=== PATIENT | male | born 1945 | race Caucasian/White ===

== ENCOUNTER 2018-11-28 06:37 | Inpatient (IN) ==
--- NOTE | 2018-11-26 11:25 | Anesthesiology Consultation ---
Date of Service November 26, 2018 Assessment & Plan (1) Encounter for pre-operative examination: Chart Review Chart Review: Acceptable Risk for Surgery and Patient NOT seen in Pre Admission Testing History Surgery Operation Date: 11/28/18 09:00 Proposed Procedures p C3-C4, C5-C6 Anterior Cervical Discectomy and Fusion with Iliac Crest Bone Graft - Marv Zuniga, Height/Weight Height: 5 ft 2 in Weight: 105.233 kg Allergies Allergy/AdvReac Type Severity Reaction Status Date / Time No Known Allergies Allergy Verified 11/26/18 10:43 Medications Home Medications Medication Instructions Recorded Confirmed Last Taken budesonide-formoterol [Symbicort] 2 puff INHALATION BID 11/26/18 11/26/18 Unknown ergocalciferol (vitamin D2) 50,000 unit PO WK 11/26/18 11/26/18 Unknown [Vitamin D2] furosemide 80 mg PO QAM 11/26/18 11/26/18 Unknown ipratropium-albuterol 3 ml INHALATION QID 11/26/18 11/26/18 Unknown metoprolol tartrate 25 mg PO QAM 11/26/18 11/26/18 Unknown potassium chloride 20 meq PO QAM 11/26/18 11/26/18 Unknown simvastatin 20 mg PO HS 11/26/18 11/26/18 Unknown Past Medical History Medical History Anemia Atrial fibrillation Patient reports coumadin currently on hold due to anemia, PCP monitoring. Chronic obstructive pulmonary disease Degenerative disc disease CERVICAL H/O prostate cancer s/p brachytherapy Hearing deficit Hyperlipidemia Hypertension Morbid obesity On home oxygen therapy WEARS 2L CONT. Osteoarthritis Sleep apnea CPAP Past Family History Family History Other No significant family history Past Surgical History Surgical History History of brachytherapy History of carpal tunnel release RT/LEFT History of cataract surgery RT/LEFT History of colonoscopy History of tonsillectomy History of tooth extraction History of total hip arthroplasty RT Hx of prostate biopsy STOP BANG Total 8 Social History Smoking Status: Former smoker tobacco type: cigarettes Do You Dip or Chew Tobacco: No Smoking End Date: QUIT 32 YEARS AGO Hx Alcohol Use: No Hx Substance Use: No substance use type: does not use Testing Laboratory Results 11/25/18 WBC: 9.92 H/H: 13.3/40.6 PLATELETS: 254 SODIUM: 138 POTASSIUM: 3.8 CHLORIDE: 102 CO2: 30 BUN: 21 CREATININE: 0.98 GLUCOSE: 133 PT: 12.5 PTT: 29.9 INR: 1.2 UA: TYPE AND SCREEN: Electrocardiogram Date: 11/25/18 Findings: + NSR @ (60) Low voltage QRS. Chest X-Ray Date: 11/25/18 IMPRESSION: 1. Hyperinflation may suggest an underlying obstructive lung disease. 2. Bandlike bibasilar opacities paradoxically suggest atelectasis or scarring. 3. Borderline cardiomegaly. No evidence of pulmonary edema or congestive change. Echocardiogram Date: 03/26/18 EF: 60-64% No LV segmental wall motion normalities. Right ventricular cavity size is normal. Right ventricular systolic function is mildly reduced. No significant valvular disease present.
--- NOTE | 2018-11-26 12:26 | History and Physical Report ---
DATE OF ADMISSION: 11/28/2018 HISTORY OF PRESENT ILLNESS: The patient is pleasant, he is 73. He is profoundly compromised with spinal cord compression, partial paralysis, walking intolerance, weakness of upper and lower extremity. He has fairly significant cord compression C3-C4 and 5-6 cervical spine. He is set up for urgent surgery. PAST MEDICAL HISTORY: Positive for prostate CA, hypertension, high cholesterol. PAST SURGICAL HISTORY: Cataracts, carpal tunnel, hip replacement. ALLERGIES: Negative. SOCIAL HISTORY: He is . No alcohol, tobacco. FAMILY HISTORY: Breast CA. REVIEW OF SYSTEMS: Denies any fevers, sweats, chills, weight loss or gain. No ear, nose and throat complaints. Denies any chest pain, palpitations. Occasional shortness of breath. No nausea, vomiting, urgency, frequency. He has mostly weakness, muscle pain, easy bruisability. OBJECTIVE: GENERAL: He is alert, oriented, pleasant gentleman. He is immensely compromised. He is in a wheelchair. He is 5 feet 2 inches, 235 pounds. VITAL SIGNS: Blood pressure 150/80, pulse 80, respiration 16. HEENT: Pupils react to light and accommodation. Ear, nose and throat clear. CARDIAC: Normal S1, S2. No S3. LUNGS: Clear to auscultation. No rales, rhonchi or wheezing. ABDOMEN: Obese, but soft, nontender. NEUROLOGIC: He has weakness of upper extremities, hyperreflexia, clonus. He has Babinski. X-rays demonstrate spinal cord compression C3-C4 and C5-C6 cervical spine. IMPRESSION: Spinal cord compression. PLAN: Includes an urgent surgery for a 2-level ACDF of the cervical spine C3-C4 and C5-C6 with iliac crest bone graft.
[~2018-11-28 06:37] MED LIST: CEFAZOLIN 2000MG 2,000 MG/15 ML SYR IV SCH; LR 15ML/HR IV SCH; SODIUM CHLORIDE 0.9% 1,000 ML IV SCH
[2018-11-28] MEDS ORDERED: DEXAMETHASONE SOD INJ 4 MG/ML VIAL ONE (08:02)
[2018-11-28] MEDS ORDERED: ROCURONIUM BROMIDE 10 MG/ML 5 ML VIAL ONE ×4 (08:02→11:08)
[2018-11-28] MEDS ORDERED: fentaNYL citrate 100 MCG/2 ML VIAL ONE (08:02)
[2018-11-28] MEDS ORDERED: LIDOCAINE HCL 2% 2 ML VIAL/AMP(20MG/ML) INFIL ONE (08:02)
[2018-11-28] MEDS ORDERED: ONDANSETRON INJ 2 MG/ML 2 ML VIAL ONE (08:02)
[2018-11-28] MEDS ORDERED: PROPOFOL IV EMULSION 10 MG/ML 20 ML VIAL IV ONE (08:02)
--- NOTE | 2018-11-28 09:17 | History & Physical Bridge Note ---
Date of Service November 28, 2018 History & Physical Bridge Note I have examined the patient, reviewed the History & Physical and in the interval since the performance of the History & Physical I have noted the following changes of clinical significance: no changes noted
[2018-11-28] MEDS ORDERED: GELATIN SPONGE SZ 100 ONE ×2 (09:25→09:27)
[2018-11-28] MEDS ORDERED: BUPIVACAINE/EPINEPHRINE 0.5% MPF 1:200,000 30 ML VIAL ONE ×2 (09:25→09:27)
[2018-11-28] MEDS ORDERED: BACITRACIN INJ 50,000 UNIT VIAL ONE (09:26)
[2018-11-28] MEDS ORDERED: THROMBIN FOR SOLN 20000 UNIT KIT ONE ×2 (09:26→09:27)
[2018-11-28] MEDS ORDERED: KETAMINE HCL INJ 50 MG/ML 10 ML VIAL ONE (09:59)
[2018-11-28] MEDS ORDERED: SODIUM CHLORIDE 0.9% INJ 10 ML VIAL ONE (10:00)
[2018-11-28] MEDS ORDERED: GLYCOPYRROLATE 0.2 MG/ML VIAL ONE (11:11)
[2018-11-28] MEDS ORDERED: NEOSTIGMINE METHYLSULFATE 5 MG/5 ML SYR ONE (11:11)
--- NOTE | 2018-11-28 11:27 | Post Operative Brief Note ---
Immediate Post Op Note v1 Date of Surgery November 28, 2018 Pre & Post Diagnosis Operation Date: 11/28/18 09:00 Pre-Op Diagnosis: CERVICAL STENOSIS, CORD COMPRESSION, DISC HERNIATI Post-Op Diagnosis: CERVICAL STENOSIS, CORD COMPRESSION, DISC HERNIATI Procedure Operation Date: 11/28/18 09:00 Actual Procedures p C3-C4 Anterior Cervical Discectomy and Fusion(Not Applicable) - Marv Zuniga DO Surgeon Marv Zuniga DO Sales Clerk Supervisor staff Estimated Blood Loss 30 Findings Consistent with Post-Op Diagnosis Drains Jake Drain Anesthesia Type General Disposition Accompanied Patient To Recovery: Yes Overlapping Procedure I was immediately available: during the entire case.
--- NOTE | 2018-11-28 11:39 | Fluoroscopy Report ---
FL spine 1V any level CLINICAL HISTORY: ACDF C3-C6 COMPARISON STUDY: None FLUOROSCOPY TIME: 10 seconds. NUMBER OF FLUOROSCOPIC IMAGES: 1 FINDINGS: A single intraoperative fluoroscopic spot image demonstrates postsurgical changes of anteri or cervical discectomy and fusion at the C3-4 level. There is a metallic probe projecting over the po sterior soft tissues at the C3-4 level. IMPRESSION: Intraoperative fluoroscopic spot image demonstrating postsurgical changes of anterior ce rvical discectomy and fusion at the C3-4 level. Electronically signed by: Nikko Shane M.D. 11/28/2018 11:38 AM
--- NOTE | 2018-11-28 12:37 | Operative Report ---
DATE OF OPERATION: 11/28/2018 PREOPERATIVE DIAGNOSIS: Spinal cord compression C3-C4 and C5-C6 cervical spine. POSTOPERATIVE DIAGNOSIS: Spinal cord compression C3-C4 and C5-C6 cervical spine. PROCEDURES: Included anterior cervical discectomy and decompression of spinal cord at C3-C4, anterior arthrodesis with Gl[employer] Coalition device at C3-C4 cervical spine. Bone graft used was combination of autograft from the cervical spine, local bone, and demineralized bone matrix. IMPLANTS USED: By the spigit. BLOOD LOSS: 30 mL. DESCRIPTION OF PROCEDURE: The patient was taken to the operating room. A general intubated anesthetic provided to the patient, a formal timeout taken. The patient was carefully marked in the preop holding area. I went over the procedure with the family and the patient. After successful general intubated anesthetic, we made a skin incision and fascial incision transverse roughly over the C3 level of the cervical spine. I was able to get to the C3-C4 level fairly readily. He was very obese, it was very deep, it was a very difficult procedure. I was able to clean out the disc interval. I got back to the spinal cord, took off disc material of the spinal cord. I went out to the uncovertebral joints, did foraminotomies. The nerve and cord were decompressed. I went down to the C5-C6 interval. Unfortunately, there were calcific deposits completely encased over the anterior aspect of the spinal cord. I could not safely get into the area. I thought I truly would have been endangering the patient. In addition, we were at the C5-C6 level on his anatomy, we were right above the clavicle and we could really barely hold the retractors to get any kind of visualization. I settled on the C3-C4 interspace thinking that was the majority of spinal cord compression. I placed the Coalition implant into place. I fastened, locked, irrigated, and closed in layers over a Jake drain. Sterile dressings applied. The patient was placed in cervical collar. I attest to the content of the Intraoperative Record and any orders documented therein. Any exception s are noted below.
--- NOTE | 2018-11-28 12:49 | Anesthesiology Progress Note ---
Date of Service November 28, 2018 Anesthesia Post Procedure Vital Signs Vital Signs: Temp Pulse Pulse Resp BP Pulse Ox 11/28/18 12:40 67 19 156/85 H 92 11/28/18 12:30 66 18 155/81 H 94 11/28/18 12:20 64 20 153/81 H 93 11/28/18 12:10 69 16 153/86 H 93 11/28/18 12:00 66 16 153/81 H 95 11/28/18 11:50 68 16 158/80 H 95 11/28/18 11:43 96.8 F L 76 16 167/83 H 96 11/28/18 07:52 97.7 F 60 18 118/73 93 Transfer of Care Handoff Completed per policy Notes Mental Status: alert / awake / arousable and participated in evaluation Patient Amnestic to Procedure: Yes Nausea / Vomiting: adequately controlled Pain: adequately controlled Airway Patency, RR, SpO2: stable & adequate BP & HR: stable & adequate Hydration State: stable & adequate Anesthetic Complications: no major complications apparent and Pt Satisfied with anesthetic care
[2018-11-28] MEDS ORDERED: MoRPHine SULFATE 2 MG/ML CARP IV PRN (13:36)
[2018-11-28] MEDS ORDERED: DEXAMETHASONE SOD PHOSPHATE 8 MG in SYRINGE 0 ML IV PRN (13:36)
[2018-11-28] MEDS ORDERED: NALOXONE HCL 0.4 MG/1 ML VIAL/CARP IV PRN (13:36)
[2018-11-28] MEDS ORDERED: DiphenhydrAMINE HCL 50 MG/ML VIAL IV PRN (13:36)
[2018-11-28] MEDS ORDERED: ACETAMINOPHEN 1,000 MG/100 ML VIAL IV PRN (13:36)
[2018-11-28] MEDS ORDERED: HYDROCODONE/ACETAMOPHEN 5/325MG TAB PO PRN (13:36)
[2018-11-28] MEDS ORDERED: MAGNESIUM HYDROXIDE SUSP 30 ML UDC PO PRN (13:36)
[2018-11-28] MEDS ORDERED: LORazepam 0.5 MG TAB PO PRN (13:36)
[2018-11-28] MEDS ORDERED: RACEPINEPHRINE 2.25% NEBU SOLN 0.5 ML VIAL INH PRN (13:36)
[2018-11-28] MEDS ORDERED: LACTATED RINGER'S 1,000 ML IV SCH (13:36)
[2018-11-28] MEDS ORDERED: ONDANSETRON INJ 2 MG/ML 2 ML VIAL IV PRN (13:36)
[2018-11-28] MEDS ORDERED: ALBUTEROL 0.083% NEBU SOLN 3 ML VIAL INH SCH (14:00)
[2018-11-28] MEDS: ALBUT/IPRATROP 3MG/0.5MG NEB 3 ML VIAL INH SCH ×2 (14:57→19:09)
[2018-11-28] MEDS: DEXAMETHASONE SOD PHOSPHATE 6 MG in SYRINGE 0 ML IV SCH (15:34)
--- NOTE | 2018-11-28 16:33 | Hospitalist Consultation ---
Date of Consultation November 28, 2018 Assessment & Plan (1) Encounter for postoperative care: 73 y/o M Hx HTN, HLD, COPD - 2L 02, CHF, PAF, morbid obesity, AUDELIA, cervical disc disease. Presented with signs of cord compression including upper and lower extremity numbness and weakness. He was promptly transported to the ER for emergent intervention. The medical service is asked to consult in the post-operative period due to his plethora of active medical issues. The pt is recovering well in the post-op period. Denies CP, SOB, nausea, vomiting, fevers or excessive pain at the surgical site. 1) Post-op - pain is controlled. PT/OT and anticoagulation to discretion of the orthopedic service. 2) CHF - euvolemic - can continue Metoprolol - hold Lasix pending AM labs and volume assessment. 3) COPD - 02 protocol - inhalers as prescribed 4) HTN, HLD - cont Metoprolol, Zocor perioperatively 5) AUDELIA - has brought his own CPAP 6) AF - sinus on arrival - cont b joyce - resumption of Coumadin to discretion of his primary MD. Total time for this consult including review of labs, meds, imaging, records - ortho notes - discussion with pt - 38 min History of Present Illness Requesting Physician: Nadia Attending Physician: Marv Zuniga, DO History of Present Illness 73 y/o M Hx HTN, HLD, COPD - 2L 02, CHF, PAF, morbid obesity, AUDELIA, cervical disc disease. Presented with signs of cord compression including upper and lower extremity numbness and weakness. He was promptly transported to the ER for e mergent intervention. The medical service is asked to consult in the post- operative period due to his plethora of active medical issues. The pt is recovering well in the post-op period. Denies CP, SOB, nausea, vomiting, fevers or excessive pain at the surgical site. PMH: 1) HTN 2) HLD 3) COPD - 2L home 02 4) Morbidly obese 5) Paroxysmal atrial fibrillation - states he was taking Coumadin but had been to the hospital one month ago for an "overdose" and was then told by the ER attending not to start taking it again 6) Cervical disc disease - C3-4,5-6 cord compression 7) Grade I diastolic CHF - echo 2017 8) AUDELIA - CPAP Surgical: 1) R total hip 2) BL carpal tunnel 3) BL cataracts Social: Does not currently smoke or drink Family: Breast CA Allergies Allergy/AdvReac Type Severity Reaction Status Date / Time No Known Allergies Allergy Verified 11/28/18 07:31 Home Medications Home Medications Medication Instructions Recorded Confirmed Type budesonide-formoterol [Symbicort] 2 puff INHALATION BID 11/26/18 11/28/18 History ergocalciferol (vitamin D2) 50,000 unit PO WK 11/26/18 11/28/18 History [Vitamin D2] furosemide 80 mg PO QAM 11/26/18 11/28/18 History ipratropium-albuterol 3 ml INHALATION QID 11/26/18 11/28/18 History metoprolol tartrate 25 mg PO QAM 11/26/18 11/28/18 History potassium chloride 20 meq PO QAM 11/26/18 11/28/18 History simvastatin 20 mg PO HS 11/26/18 11/28/18 History prednisone 12 mg PO DAILY 11/28/18 11/28/18 History Patient History Family History Other No significant family history Social History Preferred Language: Bhutanese Communication Ability: Effective [employer] Principal Required: No Beliefs That Will Affect Care: None Current Living Situation: Spouse Other Information That Helps Us Care for You: No Feels Safe at Home: Yes Safety Concerns: Feels Safe At This Time Smoking Status: Former smoker Tobacco Type: cigarettes Do You Dip or Chew Tobacco: No Smoking End Date: QUIT 32 YEARS AGO Second Hand Exposure: No Tobacco Cessation Education Requested by Patient: No Hx Alcohol Use: No Hx Substance Use: No Review of Systems Review of Systems: Gen: Denies fevers, night sweats, rigors, fatigue, malaise, weight loss/gain ENT: Denies congestion, throat pain, hearing loss Eyes: Denies acute visual changes CV: Denies CP, palpitations Pulmonary: Denies SOB, cough, wheezing GI: Denies N/V, diarrhea, constipation Neuro: Denies acute or unilateral weakness, acute gait impairment, headache or acute visual changes Musculoskeletal: Reports only some slight soreness Endocrine: Denies polydipsia, polyuria Skin: Denies acute rashes or ulcers Physical Exam Physical Exam: General: elderly male in a neck brace, AAO x 3, no distress ENT: No erythema or exudates, no thrush Eyes: KATHY, EOMI Chest/heart: Nontender, S1,2, RRR, no murmurs, no gallops Lungs: Poor air movement - no wheezing/crackles Abdomen: Nontender, nondistended, BS+ Neuro: AAO x 3, speech is clear, no unilateral weakness or loss of sensation, coordination intact Musculoskeletal: No joint inflammation, muscle tenderness, FROM Skin: No acute rashes or ulcers Extremities: No clubbing, cyanosis. +1 edema Results & Data Vital Signs (Past 12 Hours) Vital Signs Temp Pulse Pulse Resp BP Pulse Ox Pulse Ox 11/28/18 15:22 98.2 F 71 16 113/65 95 11/28/18 15:06 61 18 96 11/28/18 15:03 61 18 96 11/28/18 14:25 98.1 F 61 14 147/79 H 95 11/28/18 13:50 97.9 F 57 L 14 142/79 H 95 11/28/18 13:44 97.5 F L 55 L 20 147/79 H 95 11/28/18 13:20 97.7 F 61 16 160/80 H 93 93 11/28/18 13:00 97.5 F L 63 20 152/89 H 94 11/28/18 12:50 63 20 144/79 H 94 11/28/18 12:40 67 19 156/85 H 92 11/28/18 12:30 66 18 155/81 H 94 11/28/18 12:20 64 20 153/81 H 93 11/28/18 12:10 69 16 153/86 H 93 11/28/18 12:00 66 16 153/81 H 95 11/28/18 11:50 68 16 158/80 H 95 11/28/18 11:43 96.8 F L 76 16 167/83 H 96 11/28/18 07:52 97.7 F 60 18 118/73 93 PG Care Time/CCT Total # of Minutes Spent Total Time Spent with Patient: Total time spent is greater than 50% in coordination of care (as documented) at patient's floor/unit and/or counseling patient:
[2018-11-28] MEDS: CEFAZOLIN 2000MG 2,000 MG/15 ML SYR IV SCH (19:13)
[2018-11-28] MEDS ORDERED: SIMVASTATIN 20 MG TAB PO SCH (21:00)
[2018-11-28] MEDS: BUDESONIDE/FORMOTEROL FUMARATE 160/4.5 60 PUFFS/INHALER INH SCH (21:36)
[2018-11-29] MEDS: DEXAMETHASONE SOD PHOSPHATE 6 MG in SYRINGE 0 ML IV SCH ×2 (00:12→07:57)
[2018-11-29] MEDS: CEFAZOLIN 2000MG 2,000 MG/15 ML SYR IV SCH ×2 (01:54→09:48)
[2018-11-29] MEDS: ALBUT/IPRATROP 3MG/0.5MG NEB 3 ML VIAL INH SCH ×4 (07:16→19:06)
[2018-11-29] MEDS: METOPROLOL TARTRATE 25 MG TAB PO SCH (07:58)
[2018-11-29] MEDS: predniSONE 1 MG TAB PO SCH (07:58)
[2018-11-29] MEDS: BUDESONIDE/FORMOTEROL FUMARATE 160/4.5 60 PUFFS/INHALER INH SCH ×2 (07:59→20:36)
[2018-11-29] MEDS: FUROSEMIDE 80 MG TAB PO SCH (07:59)
[2018-11-29 08:28] LABS: Hematocrit (blood only) 41.6 % (42-52); Hemoglobin 14.2 g/dL (14.0-18.0); Mean Corpuscular Hgb Conc 34.1 g/dL (32-36); Mean Corpuscular Volume 93.7 fL (80-100); Mean Platelet Volume 9.8 fL (7.4-10.4); Platelet Count 238 K/uL (130-400); RDW Coefficient of Variation 13.1 % (11.5-14.5); RDW Standard Deviation 44.9 fL (36.4-46.3); Red Blood Count 4.44 M/uL (4.7-6.1); White Blood Count 11.55 K/uL (4.8-10.8)
--- NOTE | 2018-11-29 08:35 | Progress Note ---
DATE: 11/29/2018 SUBJECTIVE: He is alert, oriented, this morning, has minimal throat discomfort. Taking p.o. No shortness of breath. I had him stand and walk, he could walk several feet literally the 3-5 feet before having to sit down, but he was functional. OBJECTIVE: He is afebrile. Labs not indicated. X-rays not indicated. ASSESSMENT: Status post cervical spine surgery, urgently done for cord compression, making some progress, albeit slow. PLAN: At this point in time, from a medical standpoint, I think he has a good chance of getting some recovery. He will never make 100% recovery in my opinion, although stranger things have happened. He will need some exercises training and actually just need time for him to resolve and to improve and healing properties to help this out. From a social standpoint, I think it is safer either him to go home later on tonight or tomorrow morning with home health or tomorrow back to [facility] from which he came.
[2018-11-29 08:52] LABS: BUN Creatinine Ratio 15.5 (10-20); Calcium 9.3 mg/dl (8.5-10.1); Creatinine Clr Calc Pharmacy 59.5 ml/min; Potassium 4.1 mmol/L (3.5-5.1)
[2018-11-29] MEDS ORDERED: POTASSIUM CHLORIDE 20 MEQ TABCR PO SCH (09:00)
[2018-11-29] MEDS ORDERED: predniSONE 10 MG TABLET PO SCH (09:00)
[2018-11-29] MEDS ORDERED: ERGOCALCIFEROL 50,000 UNITS CAP PO SCH (09:00)
--- NOTE | 2018-11-29 09:23 | Hospitalist Progress Note ---
Date of Service November 29, 2018 Assessment & Plan (1) Cervical disc disease: - Presented with spinal cord compression at C3-C4 and C5-C6 and now S/P anterior approach discectomy and decompression - Doing well post-operatively and pain controlled - Continue pain control, PT/OT, bowel regimen, and anticoagulation if deemed appropriate by surgical team - Prednisone taper per primary - Orthopedics as primary team (2) Chronic respiratory failure: - This is in the setting of COPD and is dependent on 2 L continuous O2 at baseline - no signs of acute exacerbation - Continue nebulizers and Symbicort Present on Admission?: Yes (3) COPD (chronic obstructive pulmonary disease): - No current exacerbation; treatment as above Present on Admission?: Yes (4) Paroxysmal atrial fibrillation: - Examines in NSR; HR in normal parameters - Continue Metoprolol 25 mg daily; per med review it appears he is normally on anticoagulation and can be resumed when safe from surgical perspective Present on Admission?: Yes (5) AUDELIA on CPAP: - May continue to use CPAP at night Present on Admission?: Yes (6) Mixed hyperlipidemia: - Continue Simvastatin 20 mg daily Present on Admission?: Yes (7) Diastolic congestive heart failure: - Appears euvolemic at this time - Can continue Lasix 80 mg daily Present on Admission?: Yes Subjective Pt reports feeling well today. Minimal discomfort and tolerating liquid diet. Reports some improvement in his presenting symptoms. Is on chronic 2 L and denies worsening of his breathing or feelings of fluid buildup. He verbalizes no new complaints. Is tapering off Prednisone. Planning on discharge later today vs tomorrow. Review of Systems Constitutional: no fever, no chills and no weight gain Ear, Nose, Mouth, Throat: no sore throat, no hoarseness and no dysphagia Respiratory: no cough and no dyspnea Cardiovascular: no chest pain, no palpitations, no lightheadedness and no edema Gastrointestinal: no abdominal pain, no nausea, no vomiting, no constipation and no diarrhea/loose stools Genitourinary: no dysuria Musculoskeletal: no neck pain and no swelling Integumentary: no rash Physical Exam Constitutional: + morbidly obese; no acute distress and not ill appearing Eyes: + anicteric sclerae ENMT: Ears: no hearing impairment Neck: gauze dressing applied to anterior neck at incision site with marked serosang drainage; no bulging areas around neck to suggest hematoma; eating breakfast on assessment and swallowing liquids without obvious signs of difficulty Respiratory: normal respiratory effort Auscultation: + wheezes (sporadic and expiratory R lung reese and upper L lung reese) Cardiovascular: Rate/Rhythm: regular rate and regular rhythm Vessels: no JVD Gastrointestinal (Abdomen): Inspection/Auscultation: normal bowel sounds Percussion/Palpation: abdomen soft; abdomen nontender Musculoskeletal: Head/Neck/Chest: normocephalic, head atraumatic and neck supple Skin: no rashes, warm and dry Neurologic: moves all extremities Psychiatric: A+Ox3, euthymic affect Results & Data Vital Signs (Past 12 Hours) Vital Signs Temp Pulse Resp BP Pulse Ox Pulse Ox 11/29/18 08:05 92 11/29/18 07:16 65 18 94 11/29/18 04:20 36.6 C 68 16 116/68 94 11/29/18 03:44 64 16 96 11/29/18 02:20 36.6 C 63 16 113/68 95 11/29/18 00:15 36.7 C 64 18 107/65 94 11/28/18 23:03 68 14 94 11/28/18 22:21 36.7 C 77 18 98/59 L 93 PG Care Time/CCT Total # of Minutes Spent Total Time Spent with Patient: Total time spent is greater than 50% in coordination of care (as documented) at patient's floor/unit and/or counseling patient:
--- NOTE | 2018-11-29 10:43 | Anesthesiology Progress Note ---
Date of Service November 29, 2018 Anesthesia Post Procedure Vital Signs Vital Signs: Temp Pulse Pulse Resp BP Pulse Ox Pulse Ox 11/29/18 08:05 92 11/29/18 07:16 65 18 94 11/29/18 04:20 36.6 C 68 16 116/68 94 11/29/18 03:44 64 16 96 11/29/18 02:20 36.6 C 63 16 113/68 95 11/29/18 00:15 36.7 C 64 18 107/65 94 11/28/18 23:03 68 14 94 11/28/18 22:21 36.7 C 77 18 98/59 L 93 11/28/18 20:27 37.4 C 89 18 144/86 H 94 11/28/18 19:35 87 16 95 11/28/18 18:31 37.0 C 90 18 119/67 93 11/28/18 16:20 36.7 C 78 16 122/67 93 11/28/18 15:22 36.8 C 71 16 113/65 95 11/28/18 15:06 61 18 96 11/28/18 15:03 61 18 96 11/28/18 14:25 36.7 C 61 14 147/79 H 95 11/28/18 13:50 36.6 C 57 L 14 142/79 H 95 11/28/18 13:44 36.4 C L 55 L 20 147/79 H 95 11/28/18 13:20 36.5 C 61 16 160/80 H 93 93 11/28/18 13:00 36.4 C L 63 20 152/89 H 94 11/28/18 12:50 63 20 144/79 H 94 11/28/18 12:40 67 19 156/85 H 92 11/28/18 12:30 66 18 155/81 H 94 11/28/18 12:20 64 20 153/81 H 93 11/28/18 12:10 69 16 153/86 H 93 11/28/18 12:00 66 16 153/81 H 95 11/28/18 11:50 68 16 158/80 H 95 11/28/18 11:43 36.0 C L 76 16 167/83 H 96 Pain Intensity Bilateral Throat: Pain Intensity: 4 Notes Mental Status: alert / awake / arousable and participated in evaluation Patient Amnestic to Procedure: Yes Nausea / Vomiting: adequately controlled Pain: adequately controlled Airway Patency, RR, SpO2: stable & adequate BP & HR: stable & adequate Hydration State: stable & adequate Anesthetic Complications: no major complications apparent and Pt Satisfied with anesthetic care
[2018-11-30] MEDS: ALBUT/IPRATROP 3MG/0.5MG NEB 3 ML VIAL INH SCH (07:22)
[2018-11-30] MEDS: predniSONE 1 MG TAB PO SCH (08:43)
[2018-11-30] MEDS: METOPROLOL TARTRATE 25 MG TAB PO SCH (08:43)
[2018-11-30] MEDS: FUROSEMIDE 80 MG TAB PO SCH (08:43)
[2018-11-30] MEDS: BUDESONIDE/FORMOTEROL FUMARATE 160/4.5 60 PUFFS/INHALER INH SCH (08:43)
--- NOTE | 2018-11-30 09:14 | Hospitalist Progress Note ---
Date of Service November 30, 2018 Assessment & Plan (1) Cervical disc disease: - Presented with spinal cord compression at C3-C4 and C5-C6 and now S/P anterior approach discectomy and decompression - Doing well post-operatively and pain controlled; continues with numbness/tingling of hands/feet but states much improved from presentation - Continue pain control, PT/OT, bowel regimen, and anticoagulation if deemed appropriate by surgical team - Prednisone taper per primary - Orthopedics as primary team - planning on D/C this morning. No opposition from medical team for discharge today. Chronic medical conditions are stable and hemodynamically stable (2) Chronic respiratory failure: - This is in the setting of COPD and is dependent on 2 L continuous O2 at baseline - no signs of acute exacerbation - Continue nebulizers and Symbicort (3) COPD (chronic obstructive pulmonary disease): - No current exacerbation; treatment as above (4) Paroxysmal atrial fibrillation: - Examines in NSR; HR in normal parameters - Continue Metoprolol 25 mg daily; per med review it appears he is normally on anticoagulation and can be resumed when safe from surgical perspective -- Discussed with patient that his PCP is planning on resuming anticoagulation in near future with the plans of Coumadin and states he hasn't been on this medication long - he also reports he has no knowledge/symptoms of when he converts to A Fib (5) AUDELIA on CPAP: - May continue to use CPAP at night (6) Mixed hyperlipidemia: - Continue Simvastatin 20 mg daily (7) Diastolic congestive heart failure: - Appears euvolemic at this time - Can continue Lasix 80 mg daily Subjective Reports feeling well today. Minimal pain and tolerating a regular diet. Continues to have some numbness/tingling of the arms/legs but much improved from presenting symptoms. Planning on home health with therapy. Reports breathing is at baseline. No new symptoms or complaints Review of Systems Constitutional: no fever and no chills Ear, Nose, Mouth, Throat: no sore throat, no hoarseness and no dysphagia Respiratory: no cough, no dyspnea and no wheezing Cardiovascular: no chest pain, no palpitations, no lightheadedness and no edema Gastrointestinal: no abdominal pain, no nausea, no vomiting, no constipation and no diarrhea/loose stools Genitourinary: no dysuria Musculoskeletal: no neck pain Integumentary: no rash Neurologic: + tingling (improving) and + numbness (improving) Physical Exam Constitutional: + morbidly obese; no acute distress and not ill appearing Eyes: + anicteric sclerae ENMT: Ears: no hearing impairment Respiratory: normal respiratory effort Auscultation: + wheezes (sporadic and expiratory R lung reese and upper L lung reese) Cardiovascular: Rate/Rhythm: regular rate and regular rhythm Vessels: no JVD Gastrointestinal (Abdomen): Inspection/Auscultation: normal bowel sounds Percussion/Palpation: abdomen soft; abdomen nontender Musculoskeletal: Head/Neck/Chest: normocephalic, head atraumatic and neck supple Skin: no rashes, warm and dry Neurologic: moves all extremities Psychiatric: A+Ox3, euthymic affect Results & Data Vital Signs (Past 12 Hours) Vital Signs Temp Pulse Resp BP Pulse Ox 11/30/18 07:38 37 C 73 18 107/63 92 11/30/18 07:29 36.6 C 73 16 106/58 L 93 11/30/18 07:22 73 16 93 11/30/18 03:02 67 16 94 11/29/18 23:26 36.6 C 79 16 106/58 L 93 11/29/18 23:01 76 16 92 PG Care Time/CCT Total # of Minutes Spent Total Time Spent with Patient: Total time spent is greater than 50% in coordination of care (as documented) at patient's floor/unit and/or counseling patient:
--- NOTE | 2018-11-30 10:26 | Discharge Summary ---
He is alert, oriented, minimal complaints. Pain, in fact zero pain. Alert, oriented, ambulatory, taking p.o. No shortness of breath. He is discharged home this morning in improved stable condition. Vital signs stable. He has a followup appointment, prescriptions on his chart and collar has been provided.
== END 2018-11-30 10:42 | disposition home health service (06) | DRG 29 ==
LOC: ASU 06:37 → 3E 12:31